=== PATIENT | female | born 1930 | race Caucasian/White ===

== ENCOUNTER → 2016-09-17 | Outpatient (CLI) | payer MEDICARE, BC ==
--- NOTE | 2016-09-17 15:25 | MRI ---
EXAM DESCRIPTION: Brain w/wo Contrast CLINICAL HISTORY: ATAXIC GAIT COMPARISON: CT neck from 2009, February. TECHNIQUE: Non contrast MRI of the brain is performed according to our usual protocol including multiplanar multi sequence technique. Post contrasted 3-D imaging was available. FINDINGS: The mass seen within the region of the right carotid space extending inferiorly from the skull base. This mass may demonstrate internal flow voids and intense enhancement. This mass results in anterior deviation of the right internal carotid artery. The mass then cephalad through the jugular bulb into the cranial vault. It extends into the mastoidectomy cavity and middle ear. Additionally, there is extensive dural thickening adjacent to the clivus, tectorial membrane and cephalad most aspect of the ligamentum flavum. Finally, there is abnormal clival signal which is suggestive clival involvement. At this time there is only minimal mass effect upon the medulla and cervical aspect of the spinal cord, but no abnormal cord signal. This mass may extend into the posterior right paraspinal muscles as there is abnormal enhancement noted on the right. A few T2 hyperintensities noted within the cerebral white matter. Bilateral basal ganglia lacunar infarct. No restricted diffusion on today's exam within the brain or cerebellopontine stroke. Flow voids are maintained. 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 This mass may involve the clivus, jugular bulb and mastoidectomy cavity. Additionally, there is thickening of the dura along the clivus was not appreciated on the previous MRI from 2006. This also may indicate dural involvement near the tectorial membrane. Dr. Damon was notified of these findings. Involutional changes of brain noted with a few T2 hyperintensities in lacunar infarct. Right parieto-occipital craniotomy with a large underlying resection cavity. Electronically signed by: Aron Astudillo MD 09/17/2016 3:23 PM CDT
== END | disposition home or self-care (01) ==
LOC: MRI 08:53
PROVIDERS: ATTEND General Practice
DX: R26.0 Ataxic gait (principal)

== ENCOUNTER → 2016-10-23 | Outpatient (CLI) | payer MEDICARE ==
--- NOTE | 2016-10-24 17:51 | MRI ---
Procedure: MR LUMBAR SPINE WITHOUT IV CONTRAST, MR THORACIC SPINE WITHOUT IV CONTRAST Exam Date: 10/23/2016 12:00 AM CDT Ordering Provider: SELENE RAY Clinical Indication: Back pain with degenerative disc disease. Comparison: None Technique: Multiplanar MRI of the thoracic spine was obtained without the intravenous administration of contrast medium. Findings: There is normal signal within the marrow of the thoracic vertebral bodies. There is no marrow signal abnormality to suggest fracture or neoplasm. Degenerative disc changes are noted predominantly at T1-T2 and T2-T3. There is degenerative anterolisthesis of T2 on T3 with disc uncovering. There is also degenerative disc changes with broad-based disc bulge of T11-T12 with trace retrolisthesis. However, there is no spinal canal or foraminal stenosis. The thoracic spinal cord is of normal signal and contour. The conus is of normal signal and contour and terminates at the L1 level. There is no paraspinal mass. There is no prevertebral fluid collection. Impression: Scattered degenerative disc and facet disease without spinal canal or foraminal stenosis. Otherwise, nonacute MRI of the thoracic spine. Procedure: MR LUMBAR SPINE WITHOUT IV CONTRAST, MR THORACIC SPINE WITHOUT IV CONTRAST Exam Date: 10/23/2016 12:00 AM CDT Ordering Provider: SELENE RAY Clinical Indication: Low back pain with radiculopathy. Comparison: None Technique: Multiplanar, multisequence MR images of the lumbar spine were obtained. Findings: No evidence of vertebral body compression deformity or acute fracture. Postsurgical changes of compressive laminectomies and posterior fusion constructs at L4-L5.. Spinal cord terminates at the superior endplate of L1 and is normal in signal morphology. Cauda equina separate appropriately. T12-L1: Unremarkable. L1-L2: Trace circumferential disc bulge with right greater than left facet arthrosis and ligamentum flavum hypertrophy. No spinal canal stenosis. There is moderate right neural foraminal stenosis. Left neural foramen is patent. L2-L3: Broad-based disc bulge with moderate facet arthrosis and ligamentum flavum hypertrophy. No spinal canal or foraminal stenosis. L3-L4: Advanced degenerative disc changes with advanced facet arthrosis. There is broad-based disc and covering/disc bulge. Marked ligamentum flavum hypertrophy also present. This contributes to severe spinal canal and subarticular recess stenosis. There is also severe left and moderate right neural foraminal stenosis. L4-L5: Degenerative anterolisthesis with postsurgical changes of fusion construct. Spinal canal is decompressed without stenosis. Bilateral foramina are patent. L5-S1: Advanced facet arthrosis with trace disc bulge. No stenosis. Prevertebral and paravertebral soft tissues are unremarkable. Impression: Advanced degenerative disc changes and facet arthrosis with multilevel anterolisthesis as outlined above. Postsurgical changes at L4-L5. There is adjacent subsegmental disease to the surgical fused level site with high-grade spinal canal and foraminal stenosis at L3-L4. See full discussion above. Electronically signed by: Felipe Nicholson MD 10/24/2016 5:51 PM CDT
== END | disposition home or self-care (01) ==
LOC: MRI 10:25
PROVIDERS: ATTEND General Practice
DX: M51.36 Other intervertebral disc degeneration, lumbar region (principal)

== ENCOUNTER → 2017-03-12 | Outpatient (CLI) | payer MEDICARE ==
--- NOTE | 2017-03-13 09:32 | MAM ---
EXAM DESCRIPTION: 3D Screening BILATERAL CLINICAL HISTORY: 87 yearsFemaleSCREENING no complaints. No family history breast cancer. Postmenopausal. Currently on HRT. COMPARISON: 2-D digital screening bilateral study 10/26/2013.. No prior reports available. TECHNIQUE: Bilateral CC and MLO projection full-field images, 3-D tomosynthesis digital mammographic technique. Also bilateral synthesized CC/ MLO full-field images. CAD not utilized. FINDINGS: The breast parenchymal density pattern is: Scattered areas of fibroglandular density. No skin thickening or nipple retraction mass density in the retroareolar left breast with partially well-circumscribed and partially indistinct borders and possible spiculations. No significant change in size since the prior study. No microcalcifications. Most likely retroareolar lymph node. Cannot exclude a fibroadenoma or solid tumor. Bilateral benign type calcifications. Intramammary lymph nodes on the right. Bilateral solitary microcalcifications. Bilateral vascular calcifications. No focal, stellate mass or density, focal asymmetry , and no suspicious microcalcifications right breast. Stable right breast mammograms compared to prior study, taking into account differences in mammographic technique IMPRESSION: BI-RADS CATEGORY: 0 - INCOMPLETE- Need additional imaging evaluation. FOLLOW-UP: Recall for additional imaging: Targeted ultrasound retroareolar left breast. Written communication concerning the IMPRESSION and Follow-up, will be mailed to the patient and referring health care provider. Electronically signed by: Piotr Arita MD 03/13/2017 9:30 AM CDT
== END | disposition home or self-care (01) ==
LOC: MAMMO 10:40
PROVIDERS: ATTEND General Practice
DX: Z12.31 Encounter for screening mammogram for malignant neoplasm of breast (principal)
CPT/HCPCS: 77063; G0202

== ENCOUNTER → 2017-03-31 | Outpatient (CLI) | payer MEDICARE ==
--- NOTE | 2017-04-01 15:47 | MRI ---
EXAM DESCRIPTION: MRI brain without and with contrast CLINICAL HISTORY: R90.0 . Previous brain tumor resection.. New onset dizziness and weakness. COMPARISON: 09/17/2016 TECHNIQUE: Multi planar, multi sequence MRI evaluation of the brain, pre and post intravenous gadolinium contrast FINDINGS: Postsurgical change suboccipital craniotomy and mastoidectomy on the right from previous tumor resection. Bulky tumor has a similar appearance, size and morphology as on the most recent study. Involvement of the skull base and clivus with marrow replacement similar to the previous study. There is dural extension along the petrous temporal bone and up to and including the dura of the posterior fossa around the confluence of the dural sinuses. Extracranial tumor extension out of the hypoglossal foramen and jugular foramen similar in size and morphology Stable postsurgical defect of the right cerebellar hemisphere. No acute parenchymal abnormality. Changes related to chronic microvascular ischemia. Cerebral volume loss with prominence of the cortical sulci and ventricular system, stable No acute intracranial hemorrhage, brain parenchymal mass lesion, or acute infarction IMPRESSION: Stable right posterior fossa and skull base tumor compared to 09/17/2016. Histologic diagnosis glomus jugulare No acute brain abnormality Electronically signed by: Yuan Rabago MD 04/01/2017 3:46 PM CDT
== END | disposition home or self-care (01) ==
LOC: MRI 13:52
PROVIDERS: ATTEND General Practice
DX: R90.0 Intracranial space-occupying lesion found on diagnostic imaging of central nervous system (principal)

== ENCOUNTER → 2017-04-22 | Outpatient (CLI) | payer MEDICARE ==
--- NOTE | 2017-04-22 17:08 | US ---
EXAM DESCRIPTION: Breast,Left: Ultrasound CLINICAL HISTORY: 87 yearsFemaleABNORMAL MAMMO. Focal asymmetry retroareolar left breast. No complaints. COMPARISON: Digital 3-D tomosynthesis screening bilateral breasts March 12, 2017. TECHNIQUE: Transcutaneous scanning of the retroareolar left breast utilizing two-dimensional and Doppler modes. Scanning performed by the cook helper vegetable and Dr. Arita. FINDINGS: Scanning of retroareolar left breast. Mixed heterogeneous fatty tissues and fibroglandular tissues in the retroareolar left breast. Prominent ducts. No focal solid mass or discrete cyst. No parenchymal edema or large calcifications. No nipple retraction or skin thickening. IMPRESSION: BI-RADS CATEGORY: 2 - BENIGN FINDINGS. FOLLOW UP: Routine digital bilateral mammographic screening, one year interval from February 2017. The FINDINGS and the follow-up plan were reviewed in person with the patient after the examination. Written communication explaining the IMPRESSION and follow-up will be mailed to the patient and referring care provider. According to the [employer], yearly mammograms are recommended starting at age 40 and continuing as long as a woman is in good health. Any breast change noted on a breast self-exam should be reported promptly to the patient's healthcare provider. Breast MRI is recommended for women with an approximately 20-25% or greater lifetime risk of breast cancer, including women with a strong family history of breast or ovarian cancer and women who have been treated for Hodgkin's disease. A negative mammographic report should not delay tissue diagnosis in patients with significant clinical history or physical findings. Extremely dense breast tissue limits the sensitivity of digital mammography. The FINDINGS and the follow-up plan were reviewed in person with the patient after the examination. Written communication explaining the IMPRESSION and follow-up will be mailed to the patient and referring care provider. Electronically signed by: Piotr Arita MD 04/22/2017 5:06 PM [employer] ANALYST
== END | disposition home or self-care (01) ==
LOC: US 14:00
PROVIDERS: ATTEND General Practice
DX: R92.2 Inconclusive mammogram (principal)

== ENCOUNTER → 2019-04-04 | Outpatient (CLI) | payer MEDICARE ==
--- NOTE | 2019-04-04 15:45 | RAD ---
EXAM DESCRIPTION: Hip,Left 2 Views (accession [id number]), Pelvis (accession [id number]) CLINICAL HISTORY: HIP PAIN COMPARISON: None Available. TECHNIQUE: Frontal view of the pelvis. Two views of the left hip. FINDINGS: There is a pelvis and left hip demonstrate overlying bowel gas partially obscuring the sacrum and medial aspect of the bilateral iliac wings. No acute displaced fracture or dislocation seen. The bilateral hip joints are intact. Mild left osteoarthrosis with small marginal osteophyte formation. The bilateral sacroiliac joints and symphysis pubis are intact without diastases. Lower lumbar spine hardware fixation. Scattered phleboliths are present within the pelvis. The bone mineralization is decreased. IMPRESSION: 1. No radiographic evidence of acute displaced pelvic or left hip fracture. 2. Mild left hip osteoarthrosis. Electronically signed by: Hernán Degroot DO 04/04/2019 3:44 PM CDT
--- NOTE | 2019-04-04 15:45 | RAD ---
EXAM DESCRIPTION: Hip,Left 2 Views (accession [id number]), Pelvis (accession [id number]) CLINICAL HISTORY: HIP PAIN COMPARISON: None Available. TECHNIQUE: Frontal view of the pelvis. Two views of the left hip. FINDINGS: There is a pelvis and left hip demonstrate overlying bowel gas partially obscuring the sacrum and medial aspect of the bilateral iliac wings. No acute displaced fracture or dislocation seen. The bilateral hip joints are intact. Mild left osteoarthrosis with small marginal osteophyte formation. The bilateral sacroiliac joints and symphysis pubis are intact without diastases. Lower lumbar spine hardware fixation. Scattered phleboliths are present within the pelvis. The bone mineralization is decreased. IMPRESSION: 1. No radiographic evidence of acute displaced pelvic or left hip fracture. 2. Mild left hip osteoarthrosis. Electronically signed by: Hernán Degroot DO 04/04/2019 3:44 PM CDT
== END ==
LOC: RAD 10:12
PROVIDERS: ATTEND Orthopaedic Surgery
DX: M16.12 Unilateral primary osteoarthritis, left hip (principal)

== ENCOUNTER 2019-05-17 15:30 | Emergency (ER) | payer MEDICARE ==
--- NOTE | 2019-05-17 15:43 | ED.PDOC ---
History of Present Illness - General Chief Complaint: General Stated Complaint: left leg pain Time Seen by Provider: 05/17/19 15:40 - History of Present Illness Initial Comments: this is a patient with no known medical problems, patient present to the ER with left leg pain. Patient has suffered from this condition for years, and she gets steroids shots by dr Snell every other month. Patient have been on pain medications and has not had any recent trauma. patient walked into the er and did not appear in that much pain. Patient stated that recently it seems that her left leg is bothering her a lot more recently. Patient stated that she has suffered from leg pain for years Allergies/Adverse Reactions: Allergies NO KNOWN ALLERGY Allergy (Verified 05/17/19 15:41) Review of Systems - Review of Systems Constitutional: States: no symptoms reported EENTM: States: no symptoms reported Respiratory: States: no symptoms reported Cardiology: States: no symptoms reported Gastrointestinal/Abdominal: States: no symptoms reported Genitourinary: States: no symptoms reported Musculoskeletal: States: other - leg pain Skin: States: no symptoms reported Neurological: States: no symptoms reported, emotional problems Endocrine: States: no symptoms reported Hematologic/Lymphatic: States: no symptoms reported Physical Exam - Physical Exam General Appearance: Alert, Well Developed, Well Groomed, Well Hydrated Eye Exam: bilateral normal Ears, Nose, Throat: hearing grossly normal, normal ENT inspection, normal pharynx, abnormal TM (R) Neck: non-tender, full range of motion, supple Respiratory: chest non-tender, lungs clear, normal breath sounds, no respiratory distress, no accessory muscle use Peripheral Pulses: radial,right: 2+, radial,left: 2+ Gastrointestinal/Abdominal: normal bowel sounds, non tender, soft, no organomegaly, no pulsatile mass Back Exam: normal inspection, no CVA tenderness, no vertebral tenderness, CVA tenderness (R), CVA tenderness (L) Extremity: normal range of motion, non-tender, normal inspection, no pedal edema, no calf tenderness, normal capillary refill Neurologic: no motor/sensory deficits, alert, normal mood/affect, oriented x 3 Skin Exam: normal color, warm/dry Lymphatic: no adenopathy Progress - Progress Progress: 05/17/19 15:46 patient does know the dose of her pain medications. agrees that this is c chronic problems and this patient has good social support. I will write a Golden Gekko script 10 mg and will have patient follow up with Dr Snell and alternate between Ice Packs and or heat pads for at least 20 minutes 3 times a day Departure - Departure Clinical Impression: Leg pain Qualifiers: Laterality: left Qualified Code(s): M79.605 - Pain in left leg Disposition: Discharge to Home or Self Care Condition: Fair Departure Forms: ED Discharge - Pt. Copy, Patient Portal Self Enrollment Instructions: Sciatica Exercises, Bursitis Referrals: SELENE RAY [Primary Care Provider] - 1-2 Weeks Additional Instructions: alternate between Ice Packs and or heating pads for 20 minutes at least 3 times a day. Do not apply ice directly into the skin
[2019-05-17 15:54] VITALS: BP 145/101; TEMP 98.7; O2SAT 98
[2019-05-17] MEDS ORDERED: ORPHENADRINE CITRATE 30 MG/ML AMP ONE (16:17)
[2019-05-17] MEDS ORDERED: ORPHENADRINE CITRATE 30 MG/ML AMP IM ONE (16:17)
== END 2019-05-17 16:57 | disposition home or self-care (01) ==
LOC: ER 15:30
DX: M79.605 Pain in left leg (principal)